=== PATIENT | male | born 1945 | race Caucasian/White ===

== ENCOUNTER 2016-04-26 06:36 | Outpatient (CLI) ==
[2015-11-17 19:36] VITALS: BMI 27.1
--- NOTE | 2016-04-27 12:34 | STRESSECHO ---
Date of Test: 04/26/16 Reason for Exam: CARDIAC CLEARANCE, CABG, CAD, DM Ordering Physician: DESIRAE GARZA Current Medications: PLAVIX, LISINOPRIL, SOTOLOL, LIPITOR, ASA, METFORMIN, GLIPIZIDE, JANUVIA Physical Findings: S1, S2, NO S3 Resting EKG: SINUS RHYTHM, NO ACUTE CHANGES Target Heart Rate: 127/150 STAGE MPH/GRADE HEART RATE BPM BLOOD PRESSURE mmhg RHYTHM S-T SEGMENT +/- UP DOWN SYMPTOMS,COMMENTS At Rest 65 140/70 SR X NONE 1 1.7/10% 130 150/80 SR X NONE 2 2.5/12% 3 3.4/14% 4 4.2/16% 5 5.0/18% Immediately after 150 SR X FATIGUE Durations of Exercise: 5:05 Maximum Heart Rate Reached: 150 Reason for Termination: FATIGUE 5 MIN POST EXERCISE: HR 76 BPM, SINUS RHYTHM, +/- INTERPRETATION: 98% OXYGEN SATURATION WITH EXERCISE ON ROOM AIR METS 7.0 1. TEST NEGATIVE FOR ISCHEMIC ST-T WAVE CHANGES 2. NO CHEST PAIN OR CHEST DISCOMFORT 3. NO ARRHYTHMIAS 4. BLOOD PRESSURE RESPONSE: NORMAL MILDLY HYPOKINETIC SEPTUM AT REST--IMPROVED LEFT VENTRICULAR CONTRACTILITY WITH EXERCISE MTDD
--- NOTE | 2016-04-27 13:25 | ECHOSTRESS ---
Date of Exam: 04/26/16 Ordering Physician: DESIRAE GARZA Reason for Echo: CABG, CAD, CARDIAC CLEARANCE, STRESS TEST--NO ISCHEMIA M-Mode Normal Adult Results LV Dimensions Normal Adult Results AoV Opening excursions >1.6 LVEDD-base- 3.5-5.8 Ao root dimensions 2.0-3.7 LVESD-base- 3.1-4.6 L. Atrium dimensions 1.9-3.8 Post. Wall thickness 0.8-1.1 IV septum (thickness) 0.7-1.2 Post. Wall excursion 0.72-1.3 Septal motion Systolic motion R. Ventricular cavity 1.5-2.0 LVEF 60% Paradoxical septal wall motion 2-D: NORMAL LEFT VENTRICULAR CONTRACTILITY--MILDLY HYPOKINETIC SEPTUM AT REST-- NORMAL LEFT VENTRICULAR CONTRACTILITY WITH EXERCISE M-MODE: MV: AV: TV: PV: CHAMBER SIZE: WALL MOTION: NORMAL LEFT VENTRICULAR CONTRACTILITY--MILDLY HYPOKINETIC SEPTUM AT REST--NORMAL LEFT VENTRICULAR CONTRACTILITY WITH EXERCISE PERICARDIUM: INTERPRETATION: 1. NORMAL LEFT VENTRICULAR CONTRACTILITY--MILDLY HYPOKINETIC SEPTUM AT REST-- NORMAL LEFT VENTRICULAR CONTRACTILITY WITH EXERCISE MTDD
--- NOTE | 2016-04-27 13:48 | ECHO2D ---
Date of Exam: 04/26/16 Ordering Physician: DESIRAE GARZA Reason for Echo: CABG, CAD, CARDIAC CLEARANCE Auscultation: S1, S2 M-Mode Normal Adult Results LV Dimensions Normal Adult Results AoV Opening excursions >1.6 1.4 LVEDD-base- 3.5-5.8 5.5 Ao root dimensions 2.0-3.7 4.1 LVESD-base- 3.1-4.6 L. Atrium dimensions 1.9-3.8 4.6 Post. Wall thickness 0.8-1.1 1.3 IV septum (thickness) 0.7-1.2 1.2 Post. Wall excursion 0.72-1.3 NORMAL Septal motion 0.7 Systolic motion R. Ventricular cavity 1.5-2.0 NORMAL LVEF 60% 51% Paradoxical septal wall motion NORMAL 2-D : MILDLY HYPOKINETIC SEPTUM--MILDLY RESTRICTED AORTIC VALVE LEAFLET-NO EFFUSION, NO THROMBUS, ENLARGED LEFT ATRIAL CAVITY M-MODE: MV: NORMAL AV: MILDLY RESTRICTED AORTIC VALVE TV: NORMAL PV: NORMAL CHAMBER SIZE: ENLARGED LEFT ATRIAL CAVITY WALL MOTION: MILDLY HYPOKINETIC SEPTAL WALL PERICARDIUM: NORMAL INTERPRETATION: 1. LEFT VENTRICULAR HYPERTROPHY 2. MAYBE MILD AORTIC STENOSIS 3. ENLARGED LEFT ATRIAL CAVITY 4. MILDLY HYPOKINETIC SEPTAL WALL 5. LEFT VENTRICULAR EJECTION FRACTION 51% MTDD
== END 2016-04-26 06:37 | disposition home or self-care (01) ==
LOC: CAR 06:36
PROVIDERS: ATTEND Internal Medicine
DX: I25.810 Atherosclerosis of coronary artery bypass graft(s) without angina pectoris (principal); Z01.810 Encounter for preprocedural cardiovascular examination

== ENCOUNTER 2017-04-11 10:26 | Outpatient (CLI) ==
[2015-11-17 19:36] VITALS: BMI 27.1
--- NOTE | 2017-04-11 13:14 | CT ---
EXAM: CT lumbar spine without contrast. HISTORY: Pain and sciatica COMPARISON: CT lumbar spine 07/02/2010 TECHNIQUE: Serial axial images of the spine were obtained from the lower thoracic spine through the pelvis without contrast. These were viewed in multiple planes. FINDINGS: Vertebral bodies demonstrate stable mild compression deformity at L1 and T11. There are s cattered anterior disc osteophytes. There is scattered facet arthropathy. There is no lytic or humberto tic lesion. The lumbosacral junction is intact. There is no evidence of scoliosis. L1-L2: Mild facet arthropathy with no central or neural foraminal narrowing. L2-L3: Small broad-based disc bulge and facet arthropathy with no significant central or neural amanda inal narrowing. L3-L4: Broad-based disc bulge and facet arthropathy with mild central and moderate right and mild lef t neural foraminal narrowing. L4-L5: Broad-based disc bulge with facet arthropathy and ligamentum flavum hypertrophy contribute to mild central and moderate bilateral neural foraminal narrowing. L5-S1: There is a small disc bulge with facet arthropathy with no significant central or neural amanda inal narrowing. Limited views of the soft tissues demonstrate minimal pleural thickening. There is severe atheroscle rotic disease of the aorta with endograft extending into the iliac arteries. IMPRESSION: 1. No acute compression fracture or subluxation. 2. Multilevel scattered degenerative disease with stable compression deformities at L1 and T11. 3. Multilevel central and neural foraminal narrowing with mild central and bilateral moderate neural foraminal narrowing at L4-L5. If further evaluation is indicated, MRI may be obtained. 4. Minimal pleural thickening with severe atherosclerotic disease.
== END 2017-04-11 10:27 | disposition home or self-care (01) ==
LOC: RAD 10:26
PROVIDERS: ATTEND Internal Medicine
DX: M54.30 Sciatica, unspecified side (principal)

== ENCOUNTER 2017-07-07 11:23 | Outpatient (CLI) ==
[2015-11-17 19:36] VITALS: BMI 27.1
--- NOTE | 2017-07-07 12:45 | CT ---
Exam: CT of the brain without intravenous contrast. Comparison: None available. Reason for exam: Blurred vision. FINDINGS: No acute intracranial hemorrhage, mass effect, ventricular dilatation, or territorial infa rction. The quadrigeminal and ambient cisterns are patent. There is no extraaxial fluid collection. The paranasal sinuses are normally pneumatized without air-fluid levels. No depressed calvarial fr acture is seen. Soft tissue changes are seen adjacent to the calvarium likely inflammatory as seen o n sagittal image number 23 and sagittal image number 17. Impression: No acute intracranial findings.
== END 2017-07-07 11:24 | disposition home or self-care (01) ==
LOC: RAD 11:23
PROVIDERS: ATTEND Internal Medicine
DX: H53.8 Other visual disturbances (principal); H53.2 Diplopia

== ENCOUNTER 2017-10-06 06:37 | Outpatient (CLI) ==
[2015-11-17 19:36] VITALS: BMI 27.1
--- NOTE | 2017-10-12 11:29 | ECHO2D ---
Date of Exam: 10/06/17 Ordering Physician: DR. DESIRAE GARZA Room #: OP Reason for Echo: SOB, CABG, CAD M-Mode Normal Adult Results LV Dimensions Normal Adult Results AoV Opening excursions >1.6 >1.6 LVEDD-base- 3.5-5.8 5.3 Ao root dimensions 2.0-3.7 4.2 LVESD-base- 3.1-4.6 L. Atrium dimensions 1.9-3.8 4.4 Post. Wall thickness 0.8-1.1 1.4 IV septum (thickness) 0.7-1.2 1.3 Post. Wall excursion 0.72-1.3 NORMAL Septal motion 0.8 Systolic motion R. Ventricular cavity 1.5-2.0 NORMAL LVEF 60% 61% Paradoxical septal wall motion NORMAL 2-D : 2-D M Mode Echocardiogram was performed using apical four chamber and left parasternal long and short axis views. Mitral, tricuspid and aortic valves appear to be normal. Contractility of the left ventricle seems to be normal, so is the cavity size. Enlarged Left atrial cavity. Aortic root appears to be normal. There is no pericardial effusion. There is no thrombus noted in the left ventricular or left aortic cavity. No mitral valve prolapse noted. Mildly hypokinetic septal wall. M-MODE: MV: CALCIFIC MITRAL VALVE ANNULUS AV: NORMAL TV: NORMAL PV: CHAMBER SIZE: ENLARGED LEFT ATRIAL CAVITY WALL MOTION: MILDLY HYPOKINETIC SEPTUM PERICARDIUM: NORMAL INTERPRETATION: 1. LEFT VENTRICULAR HYPERTROPHY WITH ENLARGED LEFT ATRIAL CAVITY (4.4 CM) 2. MILDLY HYPOKINETIC SEPTUM 3. CALCIFIC MITRAL VALVE ANNULUS 4. MILDLY DILATED AORTIC ROOT MTDD
== END 2017-10-06 06:38 | disposition home or self-care (01) ==
LOC: CAR 06:37
PROVIDERS: ATTEND Internal Medicine
DX: I25.810 Atherosclerosis of coronary artery bypass graft(s) without angina pectoris (principal); R06.02 Shortness of breath
CPT/HCPCS: 93005; 93010

== ENCOUNTER 2017-10-07 06:43 | Outpatient (CLI) ==
[2015-11-17 19:36] VITALS: BMI 27.1
--- NOTE | 2017-10-12 11:32 | ECHOSTRESS ---
Date of Exam: 10/07/17 Ordering Physician: DR. DESIRAE GARZA Reason for Echo: SOB, CABG'S, CAD, STRESS TEST POSITIVE FOR ISCHEMIA M-Mode Normal Adult Results LV Dimensions Normal Adult Results AoV Opening excursions >1.6 LVEDD-base- 3.5-5.8 Ao root dimensions 2.0-3.7 LVESD-base- 3.1-4.6 L. Atrium dimensions 1.9-3.8 Post. Wall thickness 0.8-1.1 IV septum (thickness) 0.7-1.2 Post. Wall excursion 0.72-1.3 Septal motion Systolic motion R. Ventricular cavity 1.5-2.0 LVEF 60% Paradoxical septal wall motion 2-D: HYPOKINETIC SEPTUM AT REST AND WITH EXERCISE M-MODE: MV: AV: TV: PV: CHAMBER SIZE: WALL MOTION: HYPOKINETIC SEPTUM AT REST AND WITH EXERCISE PERICARDIUM: INTERPRETATION: 1. HYPOKINETIC SEPTUM AT REST AND WITH EXERCISE MTDD
--- NOTE | 2017-10-12 11:43 | STRESSECHO ---
Date of Test: 10/07/17 Ordering Physician: DR. DESIRAE GARZA Occupation: RETIRED Reason for Exam: CAD, CABG, SOB Smoking History: QUIT 35 YRS AGO Height: 72" Weight: 190 LBS Current Medications: METFORMIN, GLIPIZIDE, JANUVIA, PLAVIX, LISINOPRIL, SOTOLOL , LIPITOR, ASA Resting EKG: SINUS RHYTHM/ PVC'S Target Heart Rate: 125 S-T SEGMENT STAGE MPH/GRADE HEART RATE BPM BLOOD PRESSURE MMHG RHYTHM +/- ELEVATION DEPRESSION SYMPTOMS,COMMENTS AT REST 48 132/80 SR X NONE 1 1.7/10% 70 144/76 SR X NONE 2 2.5/12% 156/76 SR 3 3.4/14% 4 4.2/16% 5 5.0/18% Immediately After 90 SR X FATIGUE Minutes Post Exercise 5:00 58 138/80 SR X NO COMMENTS Minutes Post Exercise 10:00 52 138/80 SR X NO COMMENTS DURATION OF EXERCISE: 5:42 MAXIMUM HEART RATE REACHED: 90 BPM REASON FOR TERMINATION: FATIGUE 97% OXYGEN SATURATION ON ROOM AIR WITH EXERCISE METS 7.0 INTERPRETATION: 1. STRESS TEST POSITIVE FOR ISCHEMIC ST-T WAVE CHANGES 2. NO CHEST PAIN OR DISCOMFORT 3. NO ARRHYTHMIAS 4. BLOOD PRESSURE RESPONSE ADEQUATE HYPOKINETIC SEPTUM AT REST AND WITH EXERCISE MTDD
== END 2017-10-07 06:44 | disposition home or self-care (01) ==
LOC: CAR 06:43
PROVIDERS: ATTEND Internal Medicine
DX: I25.810 Atherosclerosis of coronary artery bypass graft(s) without angina pectoris (principal); R06.02 Shortness of breath

== ENCOUNTER 2017-11-11 05:39 | Emergency (ER) ==
[2017-11-11 05:45] VITALS: BP 186/86; TEMP 98.4; BMI 25.7
--- NOTE | 2017-11-11 06:22 | ED.PDOC ---
General ED Provider: Dr. PADILLA LLANES Chief Complaint: Hypertension Stated Complaint: Patient siates that he had abnormal stress test few weeks ago by DR Garza. He was then sent to [facility] where he had a cath and was noted to have clear coronary on his bipass grafts. He tends to run a lower heart rate and during the cath it was in the 30s but is usually asymptomatic. He states that over the last few days his blood pressure was elevated in the 180s which is unusual for him despite taking his blood pressure medication. He was worried so came to be seen. He denies any chest pain or shortness of breath. Thinks that his feet are swollen yesterday better this morning. Time Seen by Physician: 06:08 Mode of Arrival: Walk-In Information Source: Patient, Family Exam Limitations: No limitations Primary Care Provider: DESIRAE GARZA Nursing and Triage Documentation Reviewed and Agree: Yes Does patient meet sepsis criteria?: No System Inflammatory Response Syndrome: Not Applicable Sepsis Protocol: For patient's 13 years and over: Temp is 96.8 and below OR 101 and greater Pulse >90 BPM Resp >20/minute Acutely Altered Mental Status Are patient's symptoms suggestive of a new infection, such as: -Pneumonia -Skin, Soft Tissue -Endocarditis -UTI -Bone, Joint Infection -Implantable Device -Acute Abdominal Infection -Wound Infection -Meningitis -Blood Stream Catheter Infection -Unknown Cardiovascular Complaint Exam - Hypertension Complaint/Exam Onset/Duration: 3 days Symptoms Are: Still present Timing: Constant Reported B/P Prior to Arrival: Aggravating: Reports: None Alleviating: Reports: None Associated Signs and Symptoms: Reports: Anxiety. Denies: Chest pain, Vision changes, Recent stress, Headache, Numbness, Tingling, Weakness, Dizziness, Short of air, Swelling Related History: Reports: Similar episode Related Surgical History: Reports: Cardiac Cath (Last week Last week ) Cardiac Risk Factors: Reports: Hypertension, Diabetes, Elevated lipids, Prior GA. Denies: Smoking (previous smoker ), CHF Recent Change in Medications: No A/V [place]: No Papilledema Present: No JVD Present: No Carotid Bruit Present: No Differential Diagnoses: Hypertension Quality Indicator For Non-Traumatic Chest Pain/Syncope: EKG Performed (sinus bradycardia with 1st Degree Av block with PACS ) Review of Systems - Review Of Systems Constitutional: Reports: No symptoms Eyes: Reports: No symptoms Ears, Nose, Mouth, Throat: Reports: No symptoms Respiratory: Reports: No symptoms Cardiac: Reports: No symptoms GI: Reports: No symptoms : Reports: No symptoms Musculoskeletal: Reports: No symptoms, Joint swelling (feet - mild ) Skin: Reports: No symptoms Neurological: Reports: Anxiety Endocrine: Reports: No symptoms Hematologic/Lymphatic: Reports: No symptoms All Other Systems: Reviewed and Negative Past Medical History - Past Medical History Endocrine: Reports: DM 2, Dyslipidemia Cardiovascular: Reports: CAD, [place] Respiratory: Reports: None Hematological: Reports: None Gastrointestinal: Reports: None Genitourinary: Reports: None Neuro/Psych: Reports: None Musculoskeletal: Reports: None Cancer: Reports: None - Surgical History General Surgical History: Reports: CABG ( x 2 in 1999 ), 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 in 2008 ) - Family History Family History: Reports: None - Social History Smoking Status: Former smoker Hx Substance Use: No Alcohol Screening: None - Immunizations Tetanus Shot up to Date: Yes Physical Exam - Physical Exam Appearance: Well-appearing, No pain distress, Well-nourished Eyes: JANETTE, EOMI, Conjunctiva clear ENT: Ears normal, Nose normal, Oropharynx normal Respiratory: Airway patent, Breath sounds clear, Breath sounds equal, Respirations nonlabored Cardiovascular: Pulses normal, No rub, No murmur, Bradycardia GI/: Soft, Nontender, No masses, Bowel sounds normal, No Organomegaly Musculoskeletal: Normal strength, ROM intact, No edema, No calf tenderness Skin: Warm, Dry, Normal color Neurological: Sensation intact, Motor intact, Reflexes intact, Cranial nerves intact, Alert, Oriented Psychiatric: Anxious Re-Evaluation - Re-Evaluation Vital Signs Stable: Yes (164/72) Critical Care Note - Critical Care Note Total Time (mins): 0 Course - Course Hematology/Chemistry: 11/11/17 06:25 11/11/17 06:25 Orders, Labs, Meds: Lab Review 11/11/17 11/11/17 06:25 06:25 WBC 9.33 RBC 3.69 L Hgb 10.8 L Hct 31.8 L MCV 86.2 MCH 29.3 MCHC 34.0 RDW Coeff of Josephine 13.7 Plt Count 124 L Immature Gran % (Auto) 0.6 Neut % (Auto) 76.6 Lymph % (Auto) 14.5 [place] % (Auto) 4.8 Eos % (Auto) 3.1 Baso % (Auto) 0.4 Immature Gran # (Auto) 0.1 Neut # (Auto) 7.1 H Lymph # (Auto) 1.4 [place] # (Auto) 0.5 Eos # (Auto) 0.3 Baso # (Auto) 0.0 Sodium 137.0 Potassium 5.05 Chloride 103.1 Carbon Dioxide 26.5 Anion Gap 12.45 BUN 17.6 Creatinine 1.13 H Estimated GFR (MDRD) 64.00 BUN/Creatinine Ratio 15.57 Glucose 197.0 H Calcium 9.34 Total Bilirubin 0.30 AST 21.5 ALT 23.8 Alkaline Phosphatase 72.7 Total Creatine Kinase 82.6 Troponin I < 0.012 Total Protein 6.47 Albumin 4.10 Globulin 2.37 Albumin/Globulin Ratio 1.72 Orders Category Date Time Status EKG-(ED ONLY) Stat CARDIO 11/11/17 06:07 Completed CBC W/ AUTO DIFF Stat LAB 11/11/17 06:25 Completed COMPREHENSIVE METABOLIC PANEL Stat LAB 11/11/17 06:25 Completed CREATINE KINASE Stat LAB 11/11/17 06:25 Completed TROPONIN I Stat LAB 11/11/17 06:25 Completed Hydrochlorothiazide MEDS 11/11/17 06:35 Discontinued 25 mg PO ONCE STA Medications Discontinued Medications Generic Name Dose Route Start Last Admin Trade Name Freq PRN Reason Stop Dose Admin Hydrochlorothiazide 25 mg 11/11/17 06:35 11/11/17 06:40 Hydrochlorothiazide PO 11/11/17 06:36 25 mg ONCE STA Administration Vital Signs: Temp Pulse Resp BP Pulse Ox 11/11/17 05:39 98.4 F 66 16 186/86 H 98 JAZIEL Risk Score Age >/= 65: Yes >/= 3 CAD Risk Factors: Yes Known CAD (Stenosis >/= 50%): Yes ASA Use in Past 7 Days: Yes Severe Angina (>/= 2 episodes in 24 hours): No EKG ST Changes >/= 0.5mm: No Postive Cardiac Marker: No JAZIEL Total Score: 4 JAZIEL Risk Score: Risk Score Odds of by 30D 0 0.1 (0.1-0.2) 1 0.3 (0.2-0.3) 2 0.4 (0.3-0.5) 3 0.7 (0.6-0.9) 4 1.2 (1.0-1.5) 5 2.2 (1.9-2.6) 6 3.0 (2.5-3.6) 7 4.8 (3.8-6.1) Departure - Departure Time of Disposition: 07:00 Disposition: PLACED OBSERVATION Discharge Problem: Hypertension Qualifiers: Hypertension type: essential hypertension Qualified Code(s): I10 - Essential ( primary) hypertension Instructions: Hypertension (ED) Condition: Stable Pt referred to PMD for follow-up: Yes IPMP verified?: No Additional Instructions: Take home Medications as prescribed Follow up with PCP in 1-2 days Prescriptions: Hydrochlorothiazide 12.5 mg PO DAILY LAB #30 tablet Allergies/Adverse Reactions: Allergies No Known Allergies Allergy (Unverified 11/11/17 19:58) Home Medications: Ambulatory Orders Aspirin [Adult Low Dose Aspirin EC] 81 mg PO DAILY 11/17/15 Atorvastatin Calcium [Lipitor] 40 mg PO DAILY 11/17/15 Clopidogrel Bisulfate [Plavix] 75 mg PO DAILY 11/17/15 Glipizide [Glipizide Xl] 10 mg PO BID 11/17/15 Lisinopril 20 mg PO DAILY 11/17/15 Metformin HCl 1,000 mg PO BID 11/17/15 Sitagliptin Phosphate [Januvia] 100 mg PO DAILY 11/17/15 Sotalol HCl [Sotalol] 80 mg PO BID 11/17/15 Hydrochlorothiazide 12.5 mg PO DAILY LAB #30 tablet 11/11/17 Lorazepam [Ativan] 0.5 mg PO TID PRN #15 tablet 11/11/17 Disposition Discussed With: Patient, Family
[2017-11-11] MEDS ORDERED: HYDROCHLOROTHIAZIDE PO STA (06:35)
== END 2017-11-11 07:34 | disposition home or self-care (01) ==
LOC: ED 05:39
DX: I10 Essential (primary) hypertension (principal); I25.810 Atherosclerosis of coronary artery bypass graft(s) without angina pectoris; I25.2 Old myocardial infarction; E11.9 Type 2 diabetes mellitus without complications; E78.5 Hyperlipidemia, unspecified; Z95.5 Presence of coronary angioplasty implant and graft; Z79.899 Other long term (current) drug therapy; F41.9 Anxiety disorder, unspecified
CPT/HCPCS: 36415; 80053; 82550; 84484; 85025; 93005; 93010; 99282; 99283

== ENCOUNTER 2017-11-11 19:58 | Emergency (ER) ==
[2017-11-11 20:03] VITALS: BP 162/75; TEMP 98.3; BMI 25.4
[2017-11-11] MEDS ORDERED: XANAX PO STA (20:47)
[2017-11-11] MEDS ORDERED: XANAX ONE (20:51)
--- NOTE | 2017-11-11 21:32 | ED.PDOC ---
General ED Provider: Dr. PADILLA LLANES Chief Complaint: Hypertension Stated Complaint: Returns to the ED with elevated blood pressure at home in the 200s systolic panicked and came to the ER for evaluation. Time Seen by Physician: 20:15 Mode of Arrival: Walk-In Information Source: Patient Primary Care Provider: DESIRAE GARZA Nursing and Triage Documentation Reviewed and Agree: Yes Does patient meet sepsis criteria?: No System Inflammatory Response Syndrome: Not Applicable Sepsis Protocol: For patient's 13 years and over: Temp is 96.8 and below OR 101 and greater Pulse >90 BPM Resp >20/minute Acutely Altered Mental Status Are patient's symptoms suggestive of a new infection, such as: -Pneumonia -Skin, Soft Tissue -Endocarditis -UTI -Bone, Joint Infection -Implantable Device -Acute Abdominal Infection -Wound Infection -Meningitis -Blood Stream Catheter Infection -Unknown Review of Systems - Review Of Systems Constitutional: Reports: No symptoms Eyes: Reports: No symptoms Ears, Nose, Mouth, Throat: Reports: No symptoms Respiratory: Reports: No symptoms Cardiac: Reports: No symptoms GI: Reports: No symptoms : Reports: No symptoms Musculoskeletal: Reports: No symptoms Skin: Reports: No symptoms Neurological: Reports: Anxiety Endocrine: Reports: No symptoms Hematologic/Lymphatic: Reports: No symptoms All Other Systems: Reviewed and Negative Past Medical History - Past Medical History Endocrine: Reports: DM 2, Dyslipidemia Cardiovascular: Reports: CAD, [place] Respiratory: Reports: None Hematological: Reports: None Gastrointestinal: Reports: None Genitourinary: Reports: None Neuro/Psych: Reports: None Musculoskeletal: Reports: None Cancer: Reports: None - Surgical History General Surgical History: Reports: CABG ( x 2 in 1999 ), 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 in 2008 ) - Family History Family History: Reports: None - Social History Smoking Status: Former smoker Hx Substance Use: No Alcohol Screening: None - Immunizations Tetanus Shot up to Date: Yes Physical Exam - Physical Exam Appearance: Well-appearing, No pain distress, Well-nourished Eyes: JANETTE, EOMI, Conjunctiva clear ENT: Ears normal, Nose normal, Oropharynx normal Neck: Supple Respiratory: Airway patent, Breath sounds clear, Breath sounds equal, Respirations nonlabored Cardiovascular: Pulses normal, No rub, No murmur, Bradycardia GI/: Soft, Nontender, No masses, Bowel sounds normal, No Organomegaly Musculoskeletal: Normal strength, ROM intact, No edema, No calf tenderness Skin: Warm, Dry, Normal color Neurological: Sensation intact, Motor intact, Reflexes intact, Cranial nerves intact, Alert, Oriented Psychiatric: Anxious Critical Care Note - Critical Care Note Total Time (mins): 0 Course - Course Orders, Labs, Meds: Orders Category Date Time Status Alprazolam [Xanax] MEDS 11/11/17 20:51 Discontinued 0.5 mg .ROUTE .STK-MED ONE Alprazolam [Xanax] MEDS 11/11/17 20:47 Discontinued 0.5 mg PO ONCE STA Medications Discontinued Medications Generic Name Dose Route Start Last Admin Trade Name Freq PRN Reason Stop Dose Admin Alprazolam 0.5 mg 11/11/17 20:47 11/11/17 20:56 Xanax PO 11/11/17 20:48 Not Given ONCE STA Vital Signs: Temp Pulse Resp BP Pulse Ox 11/11/17 19:59 98.3 F 53 L 18 162/75 H 99 Departure - Departure Time of Disposition: 21:32 Disposition: HOME SELF-CARE Discharge Problem: Anxiety Hypertension Qualifiers: Hypertension type: essential hypertension Qualified Code(s): I10 - Essential ( primary) hypertension Instructions: Hypertension (ED), Anxiety (ED) Condition: Fair Pt referred to PMD for follow-up: Yes IPMP verified?: No Additional Instructions: Take medications as prescribed Follow up with PCP in 3 days continue to check you blood pressure once a day Prescriptions: Lorazepam [Ativan] 0.5 mg PO TID PRN #15 tablet PRN Reason: Anxiety Allergies/Adverse Reactions: Allergies No Known Allergies Allergy (Unverified 11/11/17 19:58) Home Medications: Ambulatory Orders Aspirin [Adult Low Dose Aspirin EC] 81 mg PO DAILY 11/17/15 Atorvastatin Calcium [Lipitor] 40 mg PO DAILY 11/17/15 Clopidogrel Bisulfate [Plavix] 75 mg PO DAILY 11/17/15 Glipizide [Glipizide Xl] 10 mg PO BID 11/17/15 Lisinopril 20 mg PO DAILY 11/17/15 Metformin HCl 1,000 mg PO BID 11/17/15 Sitagliptin Phosphate [Januvia] 100 mg PO DAILY 11/17/15 Sotalol HCl [Sotalol] 80 mg PO BID 11/17/15 Hydrochlorothiazide 12.5 mg PO DAILY LAB #30 tablet 11/11/17 Lorazepam [Ativan] 0.5 mg PO TID PRN #15 tablet 11/11/17 Disposition Discussed With: Patient, Family
== END 2017-11-11 21:40 | disposition home or self-care (01) ==
LOC: ED 19:58
DX: F41.9 Anxiety disorder, unspecified (principal); I10 Essential (primary) hypertension; E11.9 Type 2 diabetes mellitus without complications; E78.5 Hyperlipidemia, unspecified; I25.810 Atherosclerosis of coronary artery bypass graft(s) without angina pectoris; I25.2 Old myocardial infarction; Z95.5 Presence of coronary angioplasty implant and graft; Z79.899 Other long term (current) drug therapy
CPT/HCPCS: 99282

== ENCOUNTER 2018-03-27 10:07 | Outpatient (CLI) | payer OTHER ==
--- NOTE | 2018-03-27 10:45 | US ---
EXAM: Left lower extremity venous Doppler History: Left lower extremity pain and swelling. Technique: Multiple sonographic images through the left lower extremity were obtained. Color duplex Doppler was used to interrogate vascular flow. Findings: The left common femoral, greater saphenous, profunda, superficial femoral, popliteal, elayne nathalia, posterior tibial and anterior tibial veins demonstrate spontaneous flow with normal compression and normal augmentation. Left lower extremity subcutaneous edema Impression: No sonographic evidence for deep venous thrombosis.
== END 2018-03-27 10:08 | disposition home or self-care (01) ==
LOC: RAD 10:07
PROVIDERS: ATTEND Internal Medicine
DX: M79.605 Pain in left leg (principal); M79.89 Other specified soft tissue disorders

== ENCOUNTER 2018-07-11 14:42 | Emergency (ER) | payer OTHER ==
[2018-07-11 14:52] VITALS: BP 93/58; TEMP 97.6; BMI 23.7
--- NOTE | 2018-07-11 15:09 | ED.PDOC ---
General ED Provider: Dr. MARYA MARTÍNEZ Chief Complaint: Abnormal Labs Stated Complaint: had K 6.12 am today at the clinic.Neds recheck and poss Kayaxylate PO. Asymptomatic Time Seen by Physician: 14:55 Mode of Arrival: Wheelchair Information Source: Patient Exam Limitations: No limitations Primary Care Provider: DESIRAE GARZA Nursing and Triage Documentation Reviewed and Agree: Yes Does patient meet sepsis criteria?: No System Inflammatory Response Syndrome: Not Applicable Sepsis Protocol: For patient's 13 years and over: Temp is 96.8 and below OR 101 and greater Pulse >90 BPM Resp >20/minute Acutely Altered Mental Status Are patient's symptoms suggestive of a new infection, such as: -Pneumonia -Skin, Soft Tissue -Endocarditis -UTI -Bone, Joint Infection -Implantable Device -Acute Abdominal Infection -Wound Infection -Meningitis -Blood Stream Catheter Infection -Unknown Cardiovascular Complaint Exam - Chest Pain Complaint/Exam Duration: today pt had an elevated K 6.2 no CP Symptoms Are: Still present Timing: Constant Length of Chest Pain Episodes: n/a Initial Severity: None Current Severity: None Related History: Reports: Similar episode Related Surgical History: Reports: None History of Healthcare-Acquired Pneumonia: Reports: No AMI/ACS Risk Factors: Reports: None Prior Care for this Complaint: No Recent Stress Test: No JVD Present: No Subcutaneous Emphysema Present: No Diminshed Breath Sounds: No Reproducible Chest Wall Pain: No Bilateral Pulses Present: No Unequal Pulses Noted: No If Risk Factors for AMI/ACS Consider: Cardiac Enzymes If Risk Factors for PE Consider: Chest CT with contrast Quality Indicator For Non-Traumatic Chest Pain/Syncope: EKG Performed Review of Systems - Review Of Systems Constitutional: Reports: No symptoms Eyes: Reports: No symptoms Ears, Nose, Mouth, Throat: Reports: No symptoms Respiratory: Reports: No symptoms Cardiac: Reports: No symptoms, Chest pain, Edema GI: Reports: No symptoms : Reports: No symptoms Musculoskeletal: Reports: No symptoms Skin: Reports: No symptoms Neurological: Reports: No symptoms Endocrine: Reports: No symptoms, Unexplained weight gain Hematologic/Lymphatic: Reports: No symptoms All Other Systems: Reviewed and Negative Past Medical History - Past Medical History Endocrine: Reports: DM 2, Dyslipidemia Cardiovascular: Reports: CAD, CT Respiratory: Reports: None Hematological: Reports: None Gastrointestinal: Reports: None Genitourinary: Reports: None Neuro/Psych: Reports: None Musculoskeletal: Reports: None Cancer: Reports: None - Surgical History General Surgical History: Reports: CABG ( x 2 in 1999 ), 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 in 2008 ) - Family History Family History: Reports: None - Social History Smoking Status: Never smoker Hx Substance Use: No Alcohol Screening: None - Immunizations Tetanus Shot up to Date: Yes Physical Exam - Physical Exam Appearance: Well-appearing, Thin Ill-appearing: Mild Pain Distress: None Eyes: JANETTE, EOMI, Conjunctiva clear ENT: Ears normal, Nose normal, Oropharynx normal Neck: Supple Respiratory: Airway patent, Breath sounds clear, Breath sounds equal Cardiovascular: RRR, Pulses normal, No rub, No murmur GI/: Soft, Nontender, No masses, Bowel sounds normal, No Organomegaly Musculoskeletal: Normal strength, ROM intact, No edema, No calf tenderness Skin: Warm, Dry, Normal color Neurological: Sensation intact, Motor intact, Reflexes intact, Cranial nerves intact, Alert, Oriented Psychiatric: Affect appropriate, Mood appropriate Critical Care Note - Critical Care Note Total Time (mins): 0 Course - Course Hematology/Chemistry: 07/11/18 15:27 07/11/18 15:27 Orders, Labs, Meds: Lab Review 07/11/18 07/11/18 15:27 15:27 WBC 7.71 RBC 3.00 L Hgb 8.3 L Hct 25.6 L MCV 85.3 MCH 27.7 MCHC 32.4 RDW Coeff of Josephine 13.8 Plt Count 295 Immature Gran % (Auto) 0.6 Neut % (Auto) 76.1 Lymph % (Auto) 13.0 Person % (Auto) 6.7 Eos % (Auto) 3.1 Baso % (Auto) 0.5 Immature Gran # (Auto) 0.1 Neut # (Auto) 5.9 Lymph # (Auto) 1.0 Person # (Auto) 0.5 Eos # (Auto) 0.2 Baso # (Auto) 0.0 Sodium 127.4 L Potassium 5.46 H Chloride 93.5 L Carbon Dioxide 22.7 Anion Gap 16.66 BUN 29.0 H Creatinine 1.40 H Estimated GFR (MDRD) 50.00 BUN/Creatinine Ratio 20.71 Glucose 232.9 H Calcium 9.00 Total Bilirubin 0.19 L AST 22.9 ALT 19.2 Alkaline Phosphatase 90.0 Total Protein 6.01 L Albumin 3.82 Globulin 2.19 Albumin/Globulin Ratio 1.74 Orders Category Date Time Status CBC W/ AUTO DIFF Stat LAB 07/11/18 15:27 Completed COMPREHENSIVE METABOLIC PANEL Stat LAB 07/11/18 15:27 Completed Sodium Polystyrene Sulfonate [Kayexalate Susp] MEDS 07/11/18 16:22 Stat 20 gm PO ONCE STA Medications Discontinued Medications Generic Name Dose Route Start Last Admin Trade Name Kael PRN Reason Stop Dose Admin Sodium Polystyrene Sulfonate 20 gm 07/11/18 16:22 Kayexalate Susp PO 07/11/18 16:23 ONCE STA Vital Signs: Temp Pulse Resp BP Pulse Ox 07/11/18 14:43 97.6 F 94 H 16 93/58 L 98 JAZIEL Risk Score JAZIEL Risk Score: Risk Score Odds of by 30D 0 0.1 (0.1-0.2) 1 0.3 (0.2-0.3) 2 0.4 (0.3-0.5) 3 0.7 (0.6-0.9) 4 1.2 (1.0-1.5) 5 2.2 (1.9-2.6) 6 3.0 (2.5-3.6) 7 4.8 (3.8-6.1) Departure - Departure Time of Disposition: 16:20 Disposition: HOME SELF-CARE Discharge Problem: Electrolyte imbalance risk Instructions: Electrolyte Supplement (By mouth) Condition: Good Pt referred to PMD for follow-up: Yes IPMP verified?: No Additional Instructions: kayaxylate susp. 20 mg po x1. Allergies/Adverse Reactions: Allergies No Known Allergies Allergy (Verified 07/11/18 15:13) Home Medications: Ambulatory Orders Aspirin [Adult Low Dose Aspirin EC] 81 mg PO DAILY 11/17/15 Atorvastatin Calcium [Lipitor] 40 mg PO DAILY 11/17/15 Clopidogrel Bisulfate [Plavix] 75 mg PO DAILY 11/17/15 Glipizide [Glipizide Xl] 10 mg PO QAM 11/17/15 Lisinopril 20 mg PO DAILY 11/17/15 Metformin HCl 1,000 mg PO BID 11/17/15 Sitagliptin Phosphate [Januvia] 100 mg PO DAILY 11/17/15 Gabapentin [Neurontin] 300 mg PO TID 07/11/18 Glipizide 10 mg PO QPM 07/11/18 Oxycodone-Acetaminophen 5-325 [Percocet 5-325] 1 tab PO Q6H PRN 07/11/18 Disposition Discussed With: Patient, Family
[2018-07-11] MEDS ORDERED: KAYEXALATE SUSP PO STA (16:22)
== END 2018-07-11 17:16 | disposition home or self-care (01) ==
LOC: ED 14:42
DX: E87.5 Hyperkalemia (principal); E11.9 Type 2 diabetes mellitus without complications; E78.5 Hyperlipidemia, unspecified; I25.810 Atherosclerosis of coronary artery bypass graft(s) without angina pectoris; I25.2 Old myocardial infarction; Z79.899 Other long term (current) drug therapy
CPT/HCPCS: 36415; 80053; 85025; 99282